=== PATIENT | male | born 1990 | race Caucasian/White ===

== ENCOUNTER 2018-10-01 03:15 | Emergency (ER) | payer OTHER ==
[~2018-10-01] VITALS: Ht 175.3 cm; Wt 65.8 kg
[2018-10-01 03:18] VITALS: BP_SYST 153
[2018-10-01] MEDS ORDERED: KETOROLAC TROMETHAMINE 60 MG/2 ML VIAL IM ONE (04:30)
[2018-10-01 05:34] VITALS: BP_SYST 146
== END 2018-10-01 05:34 | disposition home or self-care (01) ==
LOC: SED 03:15
DX: R07.89 Other chest pain (principal); Z88.1 Allergy status to other antibiotic agents
CPT/HCPCS: 71045; 96372; 99283; J1885